=== PATIENT | male | born 1975 | race African-American/Black ===

== ENCOUNTER 2017-11-29 12:40 | Emergency (ER) | payer SELFPAY ==
[~2017-11-29] VITALS: Ht 185.4 cm; Wt 109.1 kg
[2017-11-29 12:43] VITALS: BP 140/100; PULSE 101; RESP 14; TEMP 97.7; O2SAT 99
--- NOTE | 2017-11-29 22:19 | PD ---
Physical Exam Date Seen by Provider: Nov 29, 2017 Time Seen by Provider: 14:53 Narrative 42-year-old male presents to the emergency department for evaluation of right thumb injury. He states that he injured his right thumb on rebar. He then put a hardboard panel printer to her to try to help his finger. Patient states finger is significantly swollen in triage. Patient rates pain 10/10. Data Data Last Documented VS Vital Signs Date Time Temp Pulse Resp B/P (MAP) Pulse Ox O2 Delivery O2 Flow Rate FiO2 11/29/17 12:43 97.7 101 14 140/100 (113) 99 Orders Orders Complete Blood Count With Diff (11/29/17 12:59) Basic Metabolic Panel (Bmp) (11/29/17 12:59) Act Partial Throm Time (Ptt) (11/29/17 12:59) Prothrombin Time / Inr (Pt) (11/29/17 12:59) MDM Supervised Visit with AGUSTIN: No Narrative Course 42-year-old male presents to the emergency department for evaluation of right thumb injury. It is significantly swollen and appears to be infected in triage. Patient is initially seen in triage and workup is initiated. Before patient could be placed in a medical bed, he left AGAINST MEDICAL ADVICE. Diagnosis Primary Impression: Left against medical advice Additional Impression: Finger injury Qualified Codes: S69.91XA - Unspecified injury of right wrist, hand and finger (s), initial encounter Disposition: 07 AGAINST MEDICAL ADVICE Jolene Lester Nov 29, 2017 22:19
== END 2017-11-29 14:53 | disposition left against medical advice (07) ==
LOC: NED 12:40
DX: S69.91XA Unspecified injury of right wrist, hand and finger(s), initial encounter (principal); Z53.21 Procedure and treatment not carried out due to patient leaving prior to being seen by health care provider
CPT/HCPCS: 99281

== ENCOUNTER 2017-12-04 00:18 | Inpatient (IN) | payer SELFPAY ==
[2017-12-04] VITALS (8 sets, daily range): BP systolic 123–161; BP diastolic 73–92; PULSE 78–111; RESP 18–26; TEMP 96.7–99.6; O2SAT 93–100
[~2017-12-04] VITALS: Ht 188 cm; Wt 101.0 kg
[2017-12-04] MEDS ORDERED: PIPERACIL-TAZO 4.5 GM PREMIX 100 ML IV STA (01:24)
[2017-12-04] MEDS ORDERED: VANCOMYCIN INJ 1,500 MG in SODIUM CHLORID 0.9% 500 ML INJ 500 ML IV STA (01:24)
[2017-12-04] MEDS ORDERED: SODIUM CHLOR 0.9% 1000 ML INJ 1,000 ML IV ONE ×3 (01:24)
[2017-12-04] MEDS ORDERED: MORPHINE SULFATE 8 MG/ML INJ IV PUSH ONE (01:30)
[2017-12-04] MEDS ORDERED: ONDANSETRON HCL 4 MG/2 ML VIAL IV PUSH ONE (01:30)
[2017-12-04] MEDS ORDERED: ACETAMINOPHEN 325 MG TAB PO ONE (01:30)
--- NOTE | 2017-12-04 01:48 | RADRPT ---
EXAM DATE/TIME: 12/04/2017 01:34 [place] COMPARISON: No previous studies available for comparison. INDICATIONS : Pain and swelling of right thumb after laceration from metal. MEDICAL HISTORY : None. SURGICAL HISTORY : None. ENCOUNTER: Initial ACUITY: 2 days PAIN SCORE: 10/10 LOCATION: Right Thumb FINDINGS: There is soft tissue swelling at the first digit. No metallic foreign body is seen. No fracture is se en. CONCLUSION: Soft tissue swelling. Wilder Bailey MD on December 04, 2017 at 1:44 Board Certified Radiologist. This report was verified electronically.
[2017-12-04 01:59] LABS: AUTOMATED NEUTROPHIL # 5.2 TH/MM3 (1.8-7.7); BASOPHIL % 0.4 % (0.0-2.0); EOSINOPHIL # 0.1 TH/MM3 (0-0.4); EOSINOPHIL % 0.8 % (0.0-4.0); HEMATOCRIT 37.8 % (39.0-51.0); HEMOGLOBIN 13.1 GM/DL (13.0-17.0); LYMPH % 21.2 % (9.0-44.0); LYMPHOCYTE # 1.6 TH/MM3 (1.0-4.8); MEAN CELL VOLUME 81.9 FL (80.0-100.0); MEAN CORPUSCULAR HEMOGLOBIN 28.3 PG (27.0-34.0); MEAN CORPUSCULAR HGB CONC 34.6 % (32.0-36.0); MEAN PLATELET VOLUME 6.9 FL (7.0-11.0); MONO % 8.7 % (0.0-8.0); MONOCYTE # 0.7 TH/MM3 (0-0.9); NEUT % 68.9 % (16.0-70.0); PLATELET COUNT 310 TH/MM3 (150-450); RED BLOOD COUNT 4.62 MIL/MM3 (4.50-5.90); RED CELL DISTRIBUTION WIDTH 13.7 % (11.6-17.2); WHITE BLOOD COUNT 7.5 TH/MM3 (4.0-11.0)
[2017-12-04 02:13] LABS: ALBUMIN 3.5 GM/DL (3.4-5.0); ALT (GPT) 34 U/L (12-78); AST (GOT) 52 U/L (15-37); BICARBONATE 27.5 MEQ/L (21.0-32.0); BLOOD UREA NITROGEN 9 MG/DL (7-18); CALCIUM 8.9 MG/DL (8.5-10.1); CHLORIDE 99 MEQ/L (98-107); CREATININE 1.25 MG/DL (0.60-1.30); GLOMERULAR FILTRATION RATE 77 ML/MIN (>89); GLUCOSE,RANDOM 97 MG/DL (74-106); SODIUM (NA) 132 MEQ/L (136-145)
[2017-12-04 02:15] LABS: ALKALINE PHOSPHATASE 109 U/L (45-117); TOTAL BILIRUBIN ADULT 0.4 MG/DL (0.2-1.0); TOTAL PROTEIN 9.1 GM/DL (6.4-8.2)
[2017-12-04] MEDS ORDERED: ONDANSETRON HCL 4 MG/2 ML VIAL IVP PRN (03:15)
[2017-12-04] MEDS ORDERED: SODIUM CHLORIDE 0.9% FLUSH 10 ML FLUSH IV FLUSH PRN (03:15)
[2017-12-04] MEDS ORDERED: MAGNESIUM HYDROXIDE SUSP 30 ML CUP PO PRN (03:15)
[2017-12-04] MEDS ORDERED: SENNOSIDES 8.6 MG TAB PO PRN (03:15)
[2017-12-04] MEDS ORDERED: LACTULOSE SYRUP 20 GM/30 ML CUP PO PRN (03:15)
[2017-12-04] MEDS ORDERED: Vancomycin Consult Pharmacy 1 EA OTHER SCH (03:15)
[2017-12-04] MEDS ORDERED: BISACODYL 10 MG SUPP RECTAL PRN (03:15)
[2017-12-04] MEDS ORDERED: ACETAMINOPHEN/HYDROcodone 325 MG/5 MG TAB PO PRN (03:15)
--- NOTE | 2017-12-04 03:18 | PD ---
HPI Chief Complaint: Injury Time Seen by Provider: 01:16 Travel History International Travel<30 days: No Contact w/Intl Traveler<30days: No Traveled to known affect area: No History of Present Illness HPI 42-year-old male arrives to the ER with pain and swelling in the right thumb. He does not answer questions thereby limiting the history. Significant other was much of it. 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 He's had swelling and pain in the right thumb leading to the evaluation today. [facility] Past Medical History Medical History: Denies Significant Hx Tetanus Vaccination: > 5 Years Influenza Vaccination: No Past Surgical History Surgical History: No Previous Surgery Social History Alcohol Use: Yes Tobacco Use: Yes Substance Use: Yes (mj) Allergies-Medications (Allergen,Severity, Reaction): Coded Allergies: No Known Drug Allergies (Verified Allergy, Unknown, 12/04/17) Reported Meds & Prescriptions Reported Meds & Active Scripts Active No Active Prescriptions or Reported Medications Review of Systems ROS Limitations: Uncooperative Physical Exam Narrative GENERAL: 42-year-old male well-nourished well-developed does not answer questions appears to be in moderate distress SKIN: Warm and dry. HEAD: Atraumatic. Normocephalic. EYES: Pupils equal and round. No scleral icterus. No injection or drainage. ENT: No nasal bleeding or discharge. Mucous membranes pink and moist. NECK: Trachea midline. No JVD. CARDIOVASCULAR: Regular rate and rhythm. RESPIRATORY: No accessory muscle use. Clear to auscultation. Breath sounds equal bilaterally. GASTROINTESTINAL: Abdomen soft, non-tender, nondistended. Hepatic and splenic margins not palpable. MUSCULOSKELETAL: There is circumferential thickening of the right thumb from the base to the tip as well as a circumferential facial laceration towards the base of the first metacarpal. passive flexion elicits some tenderness however exam somewhat limited due to patient affect NEUROLOGICAL: Pt not cooperative. PSYCHIATRIC: Unable to assess 2/2 pt cooperativity Data Data Last Documented VS Vital Signs Date Time Temp Pulse Resp B/P (MAP) Pulse Ox O2 Delivery O2 Flow Rate FiO2 12/04/17 01:49 108 26 143/73 (96) 100 Room Air 12/04/17 00:20 98.0 VS reviewed Orders Orders Finger ([id number]) (12/04/17 ) Sepsis Workup Initiated (12/04/17 ) Complete Blood Count With Diff (12/04/17 01:24) Comprehensive Metabolic Panel (12/04/17 01:24) Lactic Acid Sepsis Protocol (12/04/17 01:24) Urinalysis - C+S If Indicated (12/04/17 01:24) Blood Culture (12/04/17 01:24) Wound Culture And Gram Stain (12/04/17 01:24) Blood Glucose (12/04/17 01:24) Ecg Monitoring (12/04/17:24) Iv Access Insert/Monitor (12/04/17:24) Oximetry (12/04/17:24) Oxygen Administration (12/04/17:24) Acetaminophen (Tylenol) (12/04/17 01:30) Morphine Inj (Morphine Inj) (12/04/17 01:30) Ondansetron Inj (Zofran Inj) (12/04/17 01:30) Piperacil-Tazo 4.5 Gm Premix (Zosyn 4.5 (12/04/17 01:24) Vancomycin Inj (Vancomycin Inj) (12/04/17 01:24) Sodium Chlor 0.9% 1000 Ml Inj (Ns 1000 M (12/04/17 01:24) Sodium Chlor 0.9% 1000 Ml Inj (Ns 1000 M (12/04/17 01:24) Sodium Chlor 0.9% 1000 Ml Inj (Ns 1000 M (12/04/17 01:24) Labs Laboratory Tests Test 12/04/17 01:40 White Blood Count 7.5 TH/MM3 Red Blood Count 4.62 MIL/MM3 Hemoglobin 13.1 GM/DL Hematocrit 37.8 % Mean Corpuscular Volume 81.9 FL Mean Corpuscular Hemoglobin 28.3 PG Mean Corpuscular Hemoglobin Concent 34.6 % Red Cell Distribution Width 13.7 % Platelet Count 310 TH/MM3 Mean Platelet Volume 6.9 FL Neutrophils (%) (Auto) 68.9 % Lymphocytes (%) (Auto) 21.2 % Monocytes (%) (Auto) 8.7 % Eosinophils (%) (Auto) 0.8 % Basophils (%) (Auto) 0.4 % Neutrophils # (Auto) 5.2 TH/MM3 Lymphocytes # (Auto) 1.6 TH/MM3 Monocytes # (Auto) 0.7 TH/MM3 Eosinophils # (Auto) 0.1 TH/MM3 Basophils # (Auto) 0.0 TH/MM3 CBC Comment DIFF FINAL Differential Comment Blood Urea Nitrogen 9 MG/DL Creatinine 1.25 MG/DL Random Glucose 97 MG/DL Total Protein 9.1 GM/DL Albumin 3.5 GM/DL Calcium Level 8.9 MG/DL Alkaline Phosphatase 109 U/L Aspartate Amino Transf (AST/SGOT) 52 U/L Alanine Aminotransferase (ALT/SGPT) 34 U/L Total Bilirubin 0.4 MG/DL Sodium Level 132 MEQ/L Potassium Level 4.2 MEQ/L Chloride Level 99 MEQ/L Carbon Dioxide Level 27.5 MEQ/L Anion Gap 6 MEQ/L Estimat Glomerular Filtration Rate 77 ML/MIN Lactic Acid Level 0.4 mmol/L [facility] Medical Decision Making Medical Screen Exam Complete: Yes Emergency Medical Condition: Yes Medical Record Reviewed: Yes Differential Diagnosis cellulitis, flexor tenosynovitis, abscess, sepsis Narrative Course Patient has infection of the right thumb. He'll be admitted for IV antibiotics for hand surgery evaluation. Case discussed with Dr. العراقي for [facility]. Possible flexor tenosynovitis. Diagnosis Primary Impression: Tenosynovitis of thumb Admitting Information Admitting Physician Requests: Admit Scripts No Active Prescriptions or Reported Meds Davey Cantor MD Dec 04, 2017 03:18
--- NOTE | 2017-12-04 03:58 | HHI.HP ---
HPI Service [facility] Primary Care Physician No Primary Care Physician Admission Diagnosis RIGHT THUMB CELLULITIS Diagnoses: (1) Sepsis Diagnosis: Principal (2) Infection of thumb Diagnosis: Principal (3) Tobacco abuse Diagnosis: Principal Travel History International Travel<30 Days: No Contact w/Intl Traveler <30 Da: No Traveled to Known Affected Are: No History of Present Illness This is a 42-year-old male with no reported PMH presented to the ER with complaints of right thumb pain and swelling x2 wks. History significantly limited as pt will not cooperate w/ exam or speak during interview. History obtained from chart, ER doc and [employer]. Pt's significant other previously at bedside assisting w/ some of the history, however not available at this time. Per reports, pt seen on 11/29/17 after he injured his right thumb on rebar and apparently put a farm equipment mechanic to it. Was seen in Triage at that time, however pt LEFT AMA. Returns now w/ ongoing complaints, in addition to report of fever at home of 102.0. On arrival, BP 161/89, HR 111, O2 sat 97% on RA, Afebrile. CBC essentially unremarkable. Chemistry essentially unremarkable. Lactic Acid normal. Finger X-ray was soft tissue swelling, no foreign body seen. S/p Vanc/ Zosyn in ER. Review of Systems Except as stated in HPI: all other systems reviewed are Neg ROS: Unknown as patient will not cooperate with exam or answer questions. Past Family Social History Past Medical History PMH: None Past Surgical History PAST SURGICAL HISTORY: None Allergies: Coded Allergies: No Known Drug Allergies (Verified Allergy, Unknown, 12/04/17) Family History PAST FAMILY HISTORY: Reviewed. No h/o DM or CAD Social History PAST SOCIAL HISTORY: Positive for alcohol, tobacco and Marijuana. Physical Exam Vital Signs Vital Signs Date Time Temp Pulse Resp B/P (MAP) Pulse Ox O2 Delivery O2 Flow Rate FiO2 12/04/17 03:00 90 20 142/85 (104) 100 Room Air 12/04/17 01:49 108 26 143/73 (96) 100 Room Air 12/04/17 00:20 98.0 111 20 161/89 (113) 97 Room Air Physical Exam PE: GENERAL: Middle-aged black male in no acute distress, pretending to sleep. Uncooperative w/ exam, will not answer questions. HEENT: PERRLA, EOMI. No scleral icterus or conjunctival pallor. No lid lag or facial droop. CARDIOVASCULAR: Regular rate and rhythm. No obvious murmurs to auscultation. No chest tenderness to palpation. RESPIRATORY: No obvious rhonchi or wheezing. Clear to auscultation. Breath sounds equal bilaterally. GASTROINTESTINAL: Abdomen soft, non-tender, nondistended. BS normal. MUSCULOSKELETAL: Extremities without clubbing, cyanosis, or edema. No obvious deformities. Right thumb w/ swelling, +laceration at base of thumb. NEUROLOGICAL: Eyes closed, uncooperative. No focal neurologic deficits. Moving both upper and lower extremities spontaneously. Laboratory Laboratory Tests Test 12/04/17 01:40 White Blood Count 7.5 Red Blood Count 4.62 Hemoglobin 13.1 Hematocrit 37.8 Mean Corpuscular Volume 81.9 Mean Corpuscular Hemoglobin 28.3 Mean Corpuscular Hemoglobin Concent 34.6 Red Cell Distribution Width 13.7 Platelet Count 310 Mean Platelet Volume 6.9 Neutrophils (%) (Auto) 68.9 Lymphocytes (%) (Auto) 21.2 Monocytes (%) (Auto) 8.7 Eosinophils (%) (Auto) 0.8 Basophils (%) (Auto) 0.4 Neutrophils # (Auto) 5.2 Lymphocytes # (Auto) 1.6 Monocytes # (Auto) 0.7 Eosinophils # (Auto) 0.1 Basophils # (Auto) 0.0 CBC Comment DIFF FINAL Differential Comment Blood Urea Nitrogen 9 Creatinine 1.25 Random Glucose 97 Total Protein 9.1 Albumin 3.5 Calcium Level 8.9 Alkaline Phosphatase 109 Aspartate Amino Transf (AST/SGOT) 52 Alanine Aminotransferase (ALT/SGPT) 34 Total Bilirubin 0.4 Sodium Level 132 Potassium Level 4.2 Chloride Level 99 Carbon Dioxide Level 27.5 Anion Gap 6 Estimat Glomerular Filtration Rate 77 Lactic Acid Level 0.4 Date/Time Source Procedure Growth Status 12/04/17 01:40 Blood Peripheral Aerobic Blood Culture Pending Received 12/04/17 01:40 Blood Peripheral Anaerobic Blood Culture Pending Received 12/04/17 01:40 Wound Finger Gram Stain Pending Received 12/04/17 01:40 Wound Finger Wound Culture Pending Received Result Diagram: 12/04/1713912/04/17 014 Caprini VTE Risk Assessment Caprini VTE Risk Assessment: No/Low Risk (score <= 1) Caprini Risk Assessment Model Point Value = 1 Point Value = 2 Point Value = 3 Point Value = 5 Age 41-60 Minor surgery BMI > 25 kg/m2 Swollen legs Varicose veins or History of unexplained or recurrent spontaneous Oral contraceptives or hormone replacement Sepsis (< 1 month) Serious lung disease, including pneumonia (< 1 month) Abnormal pulmonary function Acute myocardial infarction Congestive heart failure (< 1 month) History of inflammatory bowel disease Medical patient at bed rest Age 61-74 Arthroscopic surgery Major open surgery (> 45 min) Laparoscopic surgery (> 45 min) Malignancy Confined to bed (> 72 hours) Immobilizing plaster cast Central venous access Age >= 75 History of VTE Family history of VTE Factor V Leiden Prothrombin [id number] Lupus anticoagulant Anticardiolipin antibodies Elevated serum homocysteine Heparin-induced thrombocytopenia Other congenital or acquired thrombophilia Stroke (< 1 month) Elective arthroplasty Hip, pelvis, or leg fracture Acute spinal cord injury (< 1 month) Prophylaxis Regimen Total Risk Factor Score Risk Level Prophylaxis Regimen 0-1 Low Early ambulation 2 Moderate Order ONE of the following: *Sequential Compression Device (SCD) *Heparin 5000 units SQ BID 3-4 Higher Order ONE of the following medications: *Heparin 5000 units SQ TID *Enoxaparin/Lovenox 40 mg SQ daily (WT < 150 kg, CrCl > 30 mL/min) *Enoxaparin/Lovenox 30 mg SQ daily (WT < 150 kg, CrCl > 10-29 mL/min) *Enoxaparin/Lovenox 30 mg SQ BID (WT < 150 kg, CrCl > 30 mL/min) AND/OR *Sequential Compression Device (SCD) 5 or more Highest Order ONE of the following medications: *Heparin 5000 units SQ TID (Preferred with Epidurals) *Enoxaparin/Lovenox 40 mg SQ daily (WT < 150 kg, CrCl > 30 mL/min) *Enoxaparin/Lovenox 30 mg SQ daily (WT < 150 kg, CrCl > 10-29 mL/min) *Enoxaparin/Lovenox 30 mg SQ BID (WT < 150 kg, CrCl > 30 mL/min) AND *Sequential Compression Device (SCD) Assessment and Plan Problem List: (1) Sepsis ICD Code: A41.9 - Sepsis, unspecified organism (2) Infection of thumb ICD Code: L08.9 - Local infection of the skin and subcutaneous tissue, unspecified (3) Tobacco abuse ICD Code: Z72.0 - Tobacco use Assessment and Plan A/P: 1. Sepsis: Temp 102 at home, HR 111, Source-Right Thumb Infection. S/p Blood Cultures, Vanc/Zosyn in ER, continue w/ IV Abx, follow up cultures. 2. Right Thumb Infection: History limited as pt uncooperative w/ exam, not answering questions, apparently sustained injury 2wks ago w/ piece of rebar, now w/ progressive swelling and fever. Hand X-ray w/ soft tissue swelling, no foreign body noted, images reviewed by me. Continue w/ IV Abx as above, follow up cultures. Analgesics/antiemetics as needed. Consult Hand Sx for further evaluation/possible intervention. 3. Tobacco Abuse: NicoDerm prn if needed. 4. DVT Prophylaxis: SCD/Teds. 5. Social work for d/c planning as needed. 6. Case discussed w/ ER physician at length, labs/records/imaging reviewed by me Physician Certification 2 Midnight Certification Type: Admission for Inpatient Services Order for Inpatient Services The services are ordered in accordance with Medicare regulations or non- Medicare payer requirements, as applicable. In the case of services not specified as inpatient-only, they are appropriately provided as inpatient services in accordance with the 2-midnight benchmark. Estimated LOS (days): 2 days is the estimated time the patient will need to remain in the hospital, assuming treatment plan goals are met and no additional complications. Post-Hospital Plan: Not yet determined Anitha العراقي MD Dec 04, 2017 03:58
[2017-12-04] MEDS: SODIUM CHLOR 0.9% 1000 ML INJ 1,000 ML IV SCH ×3 (04:14→19:23)
[2017-12-04 04:16] LABS: BILIRUBIN, URINE NEG (NEG); BLOOD, URINE NEG (NEG); GLUCOSE,URINE NEG (NEG); KETONE, URINE NEG (NEG); NITRITE,URINE NEG (NEG); SQUAMOUS EPITHELIAL CELL URINE <1 /hpf (0-5); URINE COLOR LIGHT-YELLOW (YELLW/STRAW); URINE LEUKOCYTE ESTERASE NEG (NEG)
[2017-12-04] MEDS: DOCUSATE SODIUM 50 MG/SENNA 8.6 MG TAB PO SCH ×2 (09:00→21:00)
[2017-12-04] MEDS: SODIUM CHLORIDE 0.9% FLUSH 10 ML FLUSH IV FLUSH SCH ×2 (09:00→19:10)
[2017-12-04] MEDS ORDERED: ROCURONIUM INJ 50 MG/5 ML SYRINGE IV PUSH ONE (12:00)
[2017-12-04] MEDS: CEFEPIME INJ 1,000 MG in SODIUM CHLORIDE 0.9% INJ 100 ML IV SCH (12:00)
[2017-12-04] MEDS ORDERED: ceFAZolin INJ 1,000 MG VIAL IV ONE ×2 (12:00→16:48)
[2017-12-04] MEDS ORDERED: ePHEDrine/NS 25 MG/5 ML SYRINGE IV ONE (12:00)
[2017-12-04] MEDS ORDERED: LIDOCAINE HCL 1% PF 5 ML SYRINGE OTHER ONE (12:00)
[2017-12-04] MEDS ORDERED: PHENYLEPHRINE HCL 10 MG/ML VIAL IV ONE (12:00)
[2017-12-04] MEDS ORDERED: PROPOFOL 200 MG/20 ML AMP IV ONE (12:00)
[2017-12-04] MEDS ORDERED: ONDANSETRON HCL 4 MG/2 ML VIAL IV ONE (12:00)
[2017-12-04] MEDS ORDERED: SUCCINYLCHOLINE CHLORIDE 200 MG/10 ML VIAL IV ONE (12:00)
[2017-12-04] MEDS ORDERED: PHENYLEPH/NS 1000 MCG/10 ML SYR IV ONE (12:00)
--- NOTE | 2017-12-04 13:15 | HHI.PR ---
Addendum to Inpatient Note Addendum Reason: Additional Documentation Additional Information Patient complains of right hand pain. Patient is afebrile, denies nausea vomiting or abdominal pain. The patient is awake alert oriented 3, nonacute distress. Lungs are clear to auscultation bilaterally. Abdomen is soft, nontender nondistended. Right thumb has swelling, laceration at the base of the thumb. Patient with sepsis on presentation, right thumb infection with cellulitis and possibly an abscess. Continue broad-spectrum antibiotic coverage with IV vancomycin and IV Zosyn for now, will cultures pending as well as blood cultures. Had surgery consulted and recommendations pending. The patient likely will need an I&D. Joshua Lizarraga MD Dec 04, 2017 13:15
[2017-12-04] MEDS: VANCOMYCIN INJ 1,750 MG in SODIUM CHLORID 0.9% 500 ML INJ 500 ML IV SCH (14:00)
[2017-12-04] MEDS: MORPHINE SULFATE 2 MG/ML INJ IV PUSH PRN ×2 (15:06→21:28)
[2017-12-04] MEDS ORDERED: ACETAMINOPHEN 1000 MG/100 ML 100 ML IV ONE (15:19)
[2017-12-04] MEDS ORDERED: GENTAMICIN SULFATE 80 MG/2 ML VIAL ONE (16:36)
[2017-12-04] MEDS ORDERED: LIDOCAINE 2%/EPINEPHrine PF 1:200,000 20ML SDV ONE (16:42)
[2017-12-04] MEDS ORDERED: LACTATED RINGER'S 1000 ML INJ 1,000 ML ONE (18:41)
[2017-12-04] MEDS ORDERED: DO NOT ADM ANY ANTICOAGULANT DRUGS PRN (18:45)
[2017-12-04] MEDS ORDERED: LACTATED RINGER'S 1000 ML INJ 1,000 ML IV ONE (18:45)
[2017-12-05] VITALS (9 sets, daily range): BP systolic 124–142; BP diastolic 67–83; PULSE 81–107; RESP 18–20; TEMP 97.7–100.9; O2SAT 95–99
[2017-12-05] MEDS: MORPHINE SULFATE 2 MG/ML INJ IV PUSH PRN ×3 (00:34→20:45)
[2017-12-05] MEDS: CEFEPIME INJ 1,000 MG in SODIUM CHLORIDE 0.9% INJ 100 ML IV SCH ×2 (00:35→12:46)
[2017-12-05] MEDS: VANCOMYCIN INJ 1,750 MG in SODIUM CHLORID 0.9% 500 ML INJ 500 ML IV SCH ×2 (03:23→14:49)
[2017-12-05] MEDS: ACETAMINOPHEN 325 MG TAB PO PRN (06:27)
[2017-12-05 07:36] LABS: AUTOMATED NEUTROPHIL # 3.4 TH/MM3 (1.8-7.7); BASOPHIL % 0.3 % (0.0-2.0); EOSINOPHIL # 0.1 TH/MM3 (0-0.4); EOSINOPHIL % 1.6 % (0.0-4.0); HEMATOCRIT 34.7 % (39.0-51.0); HEMOGLOBIN 11.8 GM/DL (13.0-17.0); LYMPH % 24.1 % (9.0-44.0); LYMPHOCYTE # 1.2 TH/MM3 (1.0-4.8); MEAN CELL VOLUME 82.3 FL (80.0-100.0); MEAN CORPUSCULAR HEMOGLOBIN 28.1 PG (27.0-34.0); MEAN CORPUSCULAR HGB CONC 34.1 % (32.0-36.0); MEAN PLATELET VOLUME 7.1 FL (7.0-11.0); MONO % 8.6 % (0.0-8.0); MONOCYTE # 0.4 TH/MM3 (0-0.9); NEUT % 65.4 % (16.0-70.0); PLATELET COUNT 265 TH/MM3 (150-450); RED BLOOD COUNT 4.21 MIL/MM3 (4.50-5.90); RED CELL DISTRIBUTION WIDTH 13.6 % (11.6-17.2); WHITE BLOOD COUNT 5.1 TH/MM3 (4.0-11.0)
[2017-12-05 08:04] LABS: ALBUMIN 2.7 GM/DL (3.4-5.0); ALKALINE PHOSPHATASE 85 U/L (45-117); ALT (GPT) 23 U/L (12-78); AST (GOT) 30 U/L (15-37); BICARBONATE 27.5 MEQ/L (21.0-32.0); BLOOD UREA NITROGEN 9 MG/DL (7-18); CALCIUM 8.4 MG/DL (8.5-10.1); CHLORIDE 102 MEQ/L (98-107); CREATININE 1.22 MG/DL (0.60-1.30); GLOMERULAR FILTRATION RATE 79 ML/MIN (>89); GLUCOSE,RANDOM 82 MG/DL (74-106); SODIUM (NA) 135 MEQ/L (136-145); TOTAL BILIRUBIN ADULT 0.3 MG/DL (0.2-1.0); TOTAL PROTEIN 7.7 GM/DL (6.4-8.2)
[2017-12-05] MEDS: SODIUM CHLORIDE 0.9% FLUSH 10 ML FLUSH IV FLUSH SCH ×2 (09:00→20:46)
[2017-12-05] MEDS: DOCUSATE SODIUM 50 MG/SENNA 8.6 MG TAB PO SCH ×2 (09:20→20:47)
[2017-12-05] MEDS: SODIUM CHLOR 0.9% 1000 ML INJ 1,000 ML IV SCH ×2 (09:34→20:45)
[2017-12-05] MEDS ORDERED: PHARMACY ORDERED LAB ONE (13:45)
--- NOTE | 2017-12-05 15:45 | PD.CONS ---
History of Present Illness Service Hand surgery Consult Requested By Primary team Reason for Consult Right thumb infection Primary Care Physician No Primary Care Physician Diagnoses: History of Present Illness 42-year-old left hand dominant male with no reported PMH presented to the ER with complaints of right thumb pain and swelling x3 wks. History significantly limited as pt very poor historian. Pt injured his right thumb on rebar and then burned his thumb in order to 'clean it'. Finger X-ray was soft tissue swelling, no foreign body seen. S/p Vanc/Zosyn in ER. Patient reports severe pain to his thumb. He denies pain proximal to the thumb MCP. Patient reports he has sensation to the distal thumb tip though it is diminished. Patient denies complaints elsewhere. PMH: None PAST SURGICAL HISTORY: None Allergies: Coded Allergies: No Known Drug Allergies (Verified Allergy, Unknown, 12/04/17) Family History PAST FAMILY HISTORY: Reviewed. No h/o DM or CAD Social History PAST SOCIAL HISTORY: Positive for alcohol, tobacco and Marijuana, and cocaine previous night Review of Systems Review of systems otherwise noncontributory to presenting complaint Past Family Social History Allergies: Coded Allergies: No Known Drug Allergies (Verified Allergy, Unknown, 12/04/17) Past Medical History see HPI Physical Exam Vital Signs Vital Signs Date Time Temp Pulse Resp B/P (MAP) Pulse Ox O2 Delivery O2 Flow Rate FiO2 12/05/17 13:35 98 12/05/17 12:00 98.9 84 20 136/74 (94) 98 12/05/17 09:00 81 12/05/17 08:00 98.6 86 20 124/75 (91) 95 12/05/17 04:00 100.9 104 20 142/83 (102) 95 12/05/17 01:18 21 12/05/17 00:00 100.0 107 18 140/82 (101) 96 12/04/17 20:00 98.2 78 20 123/82 (96) 94 12/04/17 19:45 88 20 110/71 (84) 100 Room Air 12/04/17 19:30 98.5 87 16 102/56 (71) 100 Room Air 12/04/17 19:15 88 20 111/59 (76) 99 Nasal Cannula 2 12/04/17 19:00 92 12 101/51 (68) 100 Nasal Cannula 3 12/04/17 18:50 94 16 92/54 (67) 97 Nasal Cannula 2 12/04/17 18:45 93 18 97/54 (68) 97 Nasal Cannula 2 12/04/17 18:40 91 16 94/50 (65) 97 Nasal Cannula 2 12/04/17 18:35 96 16 92/50 (64) 95 Nasal Cannula 2 12/04/17 18:33 96 14 101/54 (70) 96 Nasal Cannula 2 12/04/17 18:30 96 16 74/44 (54) 96 Nasal Cannula 2 12/04/17 18:26 98.0 98 16 85/47 (60) 95 Nasal Cannula 2 12/04/17 16:00 98.5 91 22 143/81 (101) 96 Patient appears uncomfortable Patient sleeping soundly, though was able to be aroused with loud voice Patient with very strange affect After asking questions repeatedly with loud voice, patient finally able to answer appropriately Patient does not seem acutely inebriated, though he is very somnolent Moist mucous membranes PERRLA skin without rash respirations nonlabored No focal neurologic deficits Patient's right thumb with fusiform dilatation, roughly 2-3 times larger than the patient's unaffected left thumb Sensation intact to light touch distal thumb Due to dirt and or poor tissue perfusion, difficult to establish if erythema present on the thumb were not Diffuse epidermolysis over the patient's thumb The patient with limited range of motion of his thumb Minimal tenderness to firm palpation over the thenar eminence and forearm as well as the rest of the hand Thumb very tender to light palpation Patient with what appears to be 2 stab wounds, one to the thumb tip pulp and 1 over the mid volar P1 Neither draining Thumb tip appears entirely fluctuant no cap refill to nail bed Laboratory Laboratory Tests Test 12/05/17 06:26 12/05/17 14:45 White Blood Count 5.1 Red Blood Count 4.21 Hemoglobin 11.8 Hematocrit 34.7 Mean Corpuscular Volume 82.3 Mean Corpuscular Hemoglobin 28.1 Mean Corpuscular Hemoglobin Concent 34.1 Red Cell Distribution Width 13.6 Platelet Count 265 Mean Platelet Volume 7.1 Neutrophils (%) (Auto) 65.4 Lymphocytes (%) (Auto) 24.1 Monocytes (%) (Auto) 8.6 Eosinophils (%) (Auto) 1.6 Basophils (%) (Auto) 0.3 Neutrophils # (Auto) 3.4 Lymphocytes # (Auto) 1.2 Monocytes # (Auto) 0.4 Eosinophils # (Auto) 0.1 Basophils # (Auto) 0.0 CBC Comment DIFF FINAL Differential Comment Blood Urea Nitrogen 9 Creatinine 1.22 Random Glucose 82 Total Protein 7.7 Albumin 2.7 Calcium Level 8.4 Alkaline Phosphatase 85 Aspartate Amino Transf (AST/SGOT) 30 Alanine Aminotransferase (ALT/SGPT) 23 Total Bilirubin 0.3 Sodium Level 135 Potassium Level 4.1 Chloride Level 102 Carbon Dioxide Level 27.5 Anion Gap 6 Estimat Glomerular Filtration Rate 79 Date/Time Source Procedure Growth Status 12/04/17 01:40 Blood Peripheral Aerobic Blood Culture - Preliminary S. Aureus Mrsa Resulted 12/04/17 01:40 Anaerobic Blood Culture - Preliminary Gram Positive Cocci Resulted 12/04/17 17:14 Wound Finger Fungal Smear - Final NO FUNGAL ELEMENTS SEEN. Resulted 12/04/17 17:14 Wound Finger Fungal Culture Pending Resulted Result Diagram: 12/05/1726 12/05/17625 Assessment and Plan Problem List: (1) Tenosynovitis of thumb ICD Codes: M65.9 - Synovitis and tenosynovitis, unspecified Status: Acute (2) Infection of thumb ICD Codes: L08.9 - Local infection of the skin and subcutaneous tissue, unspecified (3) Sepsis ICD Codes: A41.9 - Sepsis, unspecified organism Assessment and Plan 42-year-old male with severe right thumb infection Discussed at length with patient the risks benefits and alternative treatments Discussed with patient the possibility that he may lose his thumb Stress the importance of emergent washout and evacuation of any pus Given the lack of tenderness over the thenar eminence, do not feel this has progressed to tj tenosynovitis, though at a minimum this is a severe abscess of the thumb which appears to be compromising perfusion Stress to patient the risks of further procedures being necessary, nerve injury , deformity, dysfunction, stiffness, prolonged open wounds, and thumb amputation whether he undergoes operative treatment or not All questions answered The patient therefore elects to assume the risks of incision and drainage of right thumb abscess as well as washout of his tendon sheath should this be felt necessary intraoperatively Informed consent obtained Mani Martinez MD Dec 05, 2017 15:45
--- NOTE | 2017-12-05 16:01 | PD.OP ---
Operative Report Date of Surgery: Dec 04, 2017 Preoperative Diagnosis: (1) Tenosynovitis of thumb (2) Infection of thumb (3) Sepsis Postoperative Diagnosis: (1) Tenosynovitis of thumb (2) Sepsis (3) Infection of thumb Procedure: Incision and drainage of complicated thumb abscess (felon) 97061 Drainage and washout of tendon sheath of thumb [id number] Anesthesia: Gen. Surgeon: Mani Becerril Pin Machine Operator(s): . Operation and Findings: This is a 42-year-old male who presented to the emergency department roughly 3 weeks after injuring his right thumb. Hand surgery was consulted. The patient exhibited signs and symptoms consistent with a severe right thumb infection. A lengthy discussion was had with the patient regarding risks benefits and alternative treatments. The patient therefore elected to assume the risks of operative washout of the above infection. Informed consent was therefore obtained. Surgical site was marked before going to the operating room. The patient was taken to the operating room. All pressure points were padded. After the smooth induction of general anesthesia, a timeout was performed. After appropriate padding, an upper extremity tourniquet was placed. A digital block was instilled using 1% lidocaine with epinephrine. The surgical site was prepped and draped in the usual sterile fashion. After holding the arm in a nondependent position with pressure over the brachial artery for several minutes , the tourniquet was inflated. The epidermolysis was debrided. The previous stab wound in the thumb pulp was re-created and explored bluntly using the tenotomy's. A great deal of purulence was encountered. Cultures were sent 3 for anaerobic and aerobic fungal and AFB. The abscess cavity tracked to the volar aspect of the distal phalanx of the thumb. [place] incisions were then made in the proximal direction to allow for location of the patient's flexor tendon sheath. Attention was then turned to the proximal aspect of the thumb. The thenar eminence appeared uninvolved. An incision was made over the A1 claudio. Blunt dissection was carried down to the flexor tendon sheath. Both neurovascular bundles were visualized and kept free from injury. The A1 claudio was released. A pediatric feeding tube was then placed in the flexor tendon sheath, gently pushed distally, and received through the thumb pulp stab incision. This was then used to instill 3 L of gentamicin irrigation. This was done until the effluent ran clear. The feeding tube was removed. The tourniquet was let down. The tourniquet time was roughly 35 minutes. Hemostasis was ensured. The wounds were closed loosely with interrupted 4-0 nylons. The wound was dressed with Betadine soaked Kerlix wrapped circumferentially around the wound in a non-constricting manner. This was then dressed with ABDs and a Kerlix roll. All needle sponge and Spring counts were correct 2. The patient was awoken from anesthesia and arrive stable and doing well to the PACU. Mani Becerril MD Dec 05, 2017 16:01
[2017-12-05] MEDS: BACITRACIN TOP OINT 15 GM TUBE TOPICAL SCH ×2 (16:53→20:45)
--- NOTE | 2017-12-05 16:53 | HHI.PR ---
Subjective Remarks Pt s/p betadine soaks x 2 overnight by nursing. Patient reports pain improved. Range of motion improved Objective Vital Signs Date Time Temp Pulse Resp B/P (MAP) Pulse Ox O2 Delivery O2 Flow Rate FiO2 12/05/17 13:35 98 12/05/17 12:00 98.9 84 20 136/74 (94) 98 12/05/17 09:00 81 12/05/17 08:00 98.6 86 20 124/75 (91) 95 12/05/17 04:00 100.9 104 20 142/83 (102) 95 12/05/17 01:18 21 12/05/17 00:00 100.0 107 18 140/82 (101) 96 12/04/17 20:00 98.2 78 20 123/82 (96) 94 12/04/17 19:45 88 20 110/71 (84) 100 Room Air 12/04/17 19:30 98.5 87 16 102/56 (71) 100 Room Air 12/04/17 19:15 88 20 111/59 (76) 99 Nasal Cannula 2 12/04/17 19:00 92 12 101/51 (68) 100 Nasal Cannula 3 12/04/17 18:50 94 16 92/54 (67) 97 Nasal Cannula 2 12/04/17 18:45 93 18 97/54 (68) 97 Nasal Cannula 2 12/04/17 18:40 91 16 94/50 (65) 97 Nasal Cannula 2 12/04/17 18:35 96 16 92/50 (64) 95 Nasal Cannula 2 12/04/17 18:33 96 14 101/54 (70) 96 Nasal Cannula 2 12/04/17 18:30 96 16 74/44 (54) 96 Nasal Cannula 2 12/04/17 18:26 98.0 98 16 85/47 (60) 95 Nasal Cannula 2 I/O 12/04/17 12/04/17 12/04/17 12/05/17 12/05/17 12/05/17 07:00 15:00 23:00 07:00 15:00 23:00 Intake Total 3220 ml 5075 ml 820 ml Output Total 650 ml 3170 ml 2000 ml Balance 2570 ml 1905 ml -1180 ml Intake Oral 120 ml 1900 ml 720 ml IV Total 3100 ml 1375 ml 100 ml Other 1800 ml Output Urine Total 650 ml 3150 ml 2000 ml Estimated Blood Loss 20 ml # Voids 1 # Bowel Movements 1 Dressing removed Epidermolysis stable Edema mildly improved Much less tender No tenderness to firm palpation over the thenar eminence, rest of hand, or forearm Sensation intact to light touch distal thumb Result Diagram: 12/05/1762512/05/17625 Assessment and Plan Problem List: (1) Tenosynovitis of thumb ICD Codes: M65.9 - Synovitis and tenosynovitis, unspecified Status: Acute (2) Infection of thumb ICD Codes: L08.9 - Local infection of the skin and subcutaneous tissue, unspecified (3) Sepsis ICD Codes: A41.9 - Sepsis, unspecified organism Assessment and Plan 42-year-old male with severe right thumb infection Continue antibiotics Change dressings to warm soapy water soaks for 15 minutes 3 times a day by nursing, followed by application of copious bacitracin, then Xeroform, then dry gauze Keep hand elevated Mani Martinez MD Dec 05, 2017 16:53
--- NOTE | 2017-12-05 17:47 | HHI.PR ---
Subjective Remarks Patient states pain and range of motion improved. Denies fevers or chills. pain controlled. Objective Vitals Vital Signs Date Time Temp Pulse Resp B/P (MAP) Pulse Ox O2 Delivery O2 Flow Rate FiO2 12/05/17 16:00 98.6 84 20 138/74 (95) 99 12/05/17 13:35 98 12/05/17 12:00 98.9 84 20 136/74 (94) 98 12/05/17 09:00 81 12/05/17 08:00 98.6 86 20 124/75 (91) 95 12/05/17 04:00 100.9 104 20 142/83 (102) 95 12/05/17 01:18 21 12/05/17 00:00 100.0 107 18 140/82 (101) 96 12/04/17 20:00 98.2 78 20 123/82 (96) 94 12/04/17 19:45 88 20 110/71 (84) 100 Room Air 12/04/17 19:30 98.5 87 16 102/56 (71) 100 Room Air 12/04/17 19:15 88 20 111/59 (76) 99 Nasal Cannula 2 12/04/17 19:00 92 12 101/51 (68) 100 Nasal Cannula 3 12/04/17 18:50 94 16 92/54 (67) 97 Nasal Cannula 2 12/04/17 18:45 93 18 97/54 (68) 97 Nasal Cannula 2 12/04/17 18:40 91 16 94/50 (65) 97 Nasal Cannula 2 12/04/17 18:35 96 16 92/50 (64) 95 Nasal Cannula 2 12/04/17 18:33 96 14 101/54 (70) 96 Nasal Cannula 2 12/04/17 18:30 96 16 74/44 (54) 96 Nasal Cannula 2 12/04/17 18:26 98.0 98 16 85/47 (60) 95 Nasal Cannula 2 I/O 12/04/17 12/04/17 12/04/17 12/05/17 12/05/17 12/05/17 07:00 15:00 23:00 07:00 15:00 23:00 Intake Total 3220 ml 5075 ml 820 ml 100 ml 1100.5 ml Output Total 650 ml 3170 ml 2000 ml Balance 2570 ml 1905 ml -1180 ml 100 ml 1100.5 ml Intake Oral 120 ml 1900 ml 720 ml IV Total 3100 ml 1375 ml 100 ml 100 ml 1100.5 ml Other 1800 ml Output Urine Total 650 ml 3150 ml 2000 ml Estimated Blood Loss 20 ml # Voids 1 # Bowel Movements 1 Result Diagram: 12/05/17 0626 12/05/17 0626 Imaging Last Impressions Finger X-Ray 12/04/17 0000 Signed Impressions: Service Date/Time: Monday, December 04, 2017 01:34 - CONCLUSION: Soft tissue swelling. Wilder Bailey MD Objective Remarks GENERAL: Middle-aged black male in no acute distress, pretending to sleep. Uncooperative w/ exam, will not answer questions. HEENT: PERRLA, EOMI. No scleral icterus or conjunctival pallor. No lid lag or facial droop. CARDIOVASCULAR: Regular rate and rhythm. No obvious murmurs to auscultation. No chest tenderness to palpation. RESPIRATORY: No obvious rhonchi or wheezing. Clear to auscultation. Breath sounds equal bilaterally. GASTROINTESTINAL: Abdomen soft, non-tender, nondistended. BS normal. MUSCULOSKELETAL: Extremities without clubbing, cyanosis, or edema. No obvious deformities. Right thumb w/ swelling, +laceration at base of thumb. NEUROLOGICAL: Eyes closed, uncooperative. No focal neurologic deficits. Moving both upper and lower extremities spontaneously. Procedures Incision and drainage of complicated thumb abscess (felon) Drainage and washout of tendon sheath of thumb Medications and IVs Current Medications Medications (Trade) Dose Ordered Sig/Teresa Route Start Time Stop Time Status Last Admin Pharmacy Profile Note 0 ml @ 0 mls/hr UNSCH OTHER 12/04/17 03:15 Cefepime HCl 1000 mg/Sodium Chloride 100 ml @ 200 mls/hr Q12H IV 12/04/17 12:00 12/05/17 12:46 Sodium Chloride 1,000 ml @ 100 mls/hr Q10H IV 12/04/17 03:11 12/05/17 09:34 (NS Flush) 2 ml UNSCH PRN IV FLUSH 12/04/17 03:15 (NS Flush) 2 ml BID IV FLUSH 12/04/17 09:00 12/04/17 19:10 (Zofran Inj) 4 mg Q6H PRN IVP 12/04/17 03:15 (Tylenol) 650 mg Q6H PRN PO 12/04/17 03:15 12/05/17 06:27 ([place] 5-325 Mg) 1 tab Q4H PRN PO 12/04/17 03:15 (Morphine Inj) 2 mg Q3H PRN IV PUSH 12/04/17 03:15 12/05/17 06:27 (Jessie-Colace) 1 tab BID PO 12/04/17 09:00 12/05/17 09:20 (Milk Of Magnesia Liq) 30 ml Q12H PRN PO 12/04/17 03:15 (Senokot) 17.2 mg Q12H PRN PO 12/04/17 03:15 (Dulcolax Supp) 10 mg DAILY PRN RECTAL 12/04/17 03:15 (Lactulose Liq) 30 ml DAILY PRN PO 12/04/17 03:15 Vancomycin HCl 1750 mg/Sodium Chloride 517.5 ml @ 257.5 mls/ hr Q12H IV 12/04/17 14:00 12/05/17 14:49 Miscellaneous Information ALL NURSING DEPARTME... UNSCH PRN .XX 12/04/17 18:45 12/05/17 18:44 (Baciguent Oint) 1 applic Q8HR TOPICAL 12/05/17 14:00 12/05/17 16:53 A/P Problem List: (1) Sepsis ICD Code: A41.9 - Sepsis, unspecified organism (2) Infection of thumb ICD Code: L08.9 - Local infection of the skin and subcutaneous tissue, unspecified (3) Tobacco abuse ICD Code: Z72.0 - Tobacco use Assessment and Plan 1. Sepsis: Temp 102 at home, HR 111, Source-Right Thumb Infection. S/p Blood Cultures, Vanc/Zosyn in ER, continue w/ IV Abx, follow up cultures. 12/05 sepsis clinically improving. Patient without any further fevers and tachycardia resolved. Continue IV vancomycin and IV Zosyn. Blood cultures are growing MRSA as well as wound cultures. We'll place on contact precautions. Repeat blood cultures, will check 2-D echocardiogram. Consult infectious disease. 2. Right Thumb Infection: History limited as pt uncooperative w/ exam, not answering questions, apparently sustained injury 2wks ago w/ piece of rebar, now w/ progressive swelling and fever. Hand X-ray w/ soft tissue swelling, no foreign body noted, images reviewed by me. Continue w/ IV Abx as above, follow up cultures. Analgesics/antiemetics as needed. Consult Hand Sx for further evaluation/possible intervention. 12/05 patient is status post incision and drainage of complicated wound abscess. Drainage and washout of tendon sheath of thumb. Continue IV antibiotics to follow-up recommendations provided by Dr. Lebron. Hand elevation. Continue pain control with [place] and IV morphine. 3. Tobacco Abuse: NicoDerm prn if needed. 4. DVT Prophylaxis: SCD/Teds. 5. Social work for d/c planning as needed. Discharge Planning Continue to monitor in the medical floor. ID consult placed. Patient with positive blood cultures. Needs and surgical clearance. Joshua Lizarraga MD Dec 05, 2017 17:47
[2017-12-06] VITALS: BP 130/82; PULSE 85; RESP 20; TEMP 96.9; O2SAT 96
[2017-12-06] MEDS: VANCOMYCIN INJ 1,750 MG in SODIUM CHLORID 0.9% 500 ML INJ 500 ML IV SCH ×2 (00:49→15:33)
[2017-12-06] MEDS: MORPHINE SULFATE 2 MG/ML INJ IV PUSH PRN ×3 (00:49→20:36)
[2017-12-06] MEDS: CEFEPIME INJ 1,000 MG in SODIUM CHLORIDE 0.9% INJ 100 ML IV SCH ×2 (00:50→12:39)
[2017-12-06 04:00] VITALS: BP 130/86; PULSE 85; RESP 20; TEMP 96.3; O2SAT 97
[2017-12-06] MEDS: SODIUM CHLOR 0.9% 1000 ML INJ 1,000 ML IV SCH ×2 (06:20→15:11)
[2017-12-06] MEDS: BACITRACIN TOP OINT 15 GM TUBE TOPICAL SCH ×3 (06:22→20:39)
[2017-12-06 08:00] VITALS: BP 127/68; PULSE 78; RESP 18; TEMP 98.8; O2SAT 96
[2017-12-06] MEDS: SODIUM CHLORIDE 0.9% FLUSH 10 ML FLUSH IV FLUSH SCH ×2 (09:00→20:40)
--- NOTE | 2017-12-06 09:16 | HHI.PR ---
Subjective Remarks Patient feels pain is much less. Patient has been doing warm soapy water soaks. Objective Vital Signs Date Time Temp Pulse Resp B/P (MAP) Pulse Ox O2 Delivery O2 Flow Rate FiO2 12/06/17 04:00 96.3 85 20 130/86 (101) 97 12/06/17 00:00 96.9 85 20 130/82 (98) 96 12/05/17 20:00 97.7 106 20 125/67 (86) 95 12/05/17 18:10 99 21 12/05/17 16:00 98.6 84 20 138/74 (95) 99 12/05/17 13:35 98 12/05/17 12:00 98.9 84 20 136/74 (94) 98 I/O 12/05/17 12/05/17 12/05/17 12/06/17 12/06/17 12/06/17 07:00 15:00 23:00 07:00 15:00 23:00 Intake Total 820 ml 100 ml 4500.5 ml 100 ml Output Total 2000 ml 2350 ml 1525 ml Balance -1180 ml 100 ml 2150.5 ml -1425 ml Intake Oral 720 ml 2400 ml IV Total 100 ml 100 ml 2100.5 ml 100 ml Output Urine Total 2000 ml 2350 ml 1525 ml # Bowel Movements 0 No acute distress Patient appears much more energetic and responsive Dressing removed Erythema over epidermal lysis area is improved No additional purulence expressed Patient endorses sensation to both sides of his thumb tip Sutures and placed Range of motion slightly improved Thumb still very edematous Nail bed without capillary refill which is unchanged from preop Result Diagram: 12/05/17 0612/05/17 06 Assessment and Plan Problem List: (1) Tenosynovitis of thumb ICD Codes: M65.9 - Synovitis and tenosynovitis, unspecified Status: Acute (2) Infection of thumb ICD Codes: L08.9 - Local infection of the skin and subcutaneous tissue, unspecified (3) Sepsis ICD Codes: A41.9 - Sepsis, unspecified organism Assessment and Plan 42-year-old male with severe right thumb infection Slowly improving Continue antibiotics Dressing: warm soapy water soaks for 15 minutes 3 times a day by nursing, followed by application of copious bacitracin, then Xeroform, then dry gauze Keep hand elevated Mani Martinez MD Dec 06, 2017 09:16
[2017-12-06] MEDS: DOCUSATE SODIUM 50 MG/SENNA 8.6 MG TAB PO SCH ×2 (09:41→20:36)
--- NOTE | 2017-12-06 11:19 | HHI.PR ---
Subjective Remarks pain controlled. denies cp/sob. no further fevers since 12/05 Objective Vitals Vital Signs Date Time Temp Pulse Resp B/P (MAP) Pulse Ox O2 Delivery O2 Flow Rate FiO2 12/06/17 08:00 98.8 78 18 127/68 (87) 96 12/06/17 04:00 96.3 85 20 130/86 (101) 97 12/06/17 00:00 96.9 85 20 130/82 (98) 96 12/05/17 20:00 97.7 106 20 125/67 (86) 95 12/05/17 18:10 99 21 12/05/17 16:00 98.6 84 20 138/74 (95) 99 12/05/17 13:35 98 12/05/17 12:00 98.9 84 20 136/74 (94) 98 I/O 12/05/17 12/05/17 12/05/17 12/06/17 12/06/17 12/06/17 07:00 15:00 23:00 07:00 15:00 23:00 Intake Total 820 ml 100 ml 4500.5 ml 100 ml Output Total 2000 ml 2350 ml 1525 ml Balance -1180 ml 100 ml 2150.5 ml -1425 ml Intake Oral 720 ml 2400 ml IV Total 100 ml 100 ml 2100.5 ml 100 ml Output Urine Total 2000 ml 2350 ml 1525 ml # Bowel Movements 0 Result Diagram: 12/05/17 0626 12/05/17 0626 Imaging Last Impressions Finger X-Ray 12/04/17 0000 Signed Impressions: Service Date/Time: Monday, December 04, 2017 01:34 - CONCLUSION: Soft tissue swelling. Wilder Bailey MD Objective Remarks GENERAL: Middle-aged black male in no acute distress, pretending to sleep. Uncooperative w/ exam, will not answer questions. HEENT: PERRLA, EOMI. No scleral icterus or conjunctival pallor. No lid lag or facial droop. CARDIOVASCULAR: Regular rate and rhythm. No obvious murmurs to auscultation. No chest tenderness to palpation. RESPIRATORY: No obvious rhonchi or wheezing. Clear to auscultation. Breath sounds equal bilaterally. GASTROINTESTINAL: Abdomen soft, non-tender, nondistended. BS normal. MUSCULOSKELETAL: Extremities without clubbing, cyanosis, or edema. No obvious deformities. Right thumb w/ swelling, +laceration at base of thumb. NEUROLOGICAL: Eyes closed, uncooperative. No focal neurologic deficits. Moving both upper and lower extremities spontaneously. Procedures Incision and drainage of complicated thumb abscess (felon) Drainage and washout of tendon sheath of thumb Medications and IVs Current Medications Medications (Trade) Dose Ordered Sig/Teresa Route Start Time Stop Time Status Last Admin Pharmacy Profile Note 0 ml @ 0 mls/hr UNSCH OTHER 12/04/17 03:15 Sodium Chloride 1,000 ml @ 100 mls/hr Q10H IV 12/04/17 03:11 12/06/17 06:20 (NS Flush) 2 ml UNSCH PRN IV FLUSH 12/04/17 03:15 (NS Flush) 2 ml BID IV FLUSH 12/04/17 09:00 12/05/17 20:46 (Zofran Inj) 4 mg Q6H PRN IVP 12/04/17 03:15 (Tylenol) 650 mg Q6H PRN PO 12/04/17 03:15 12/05/17 06:27 ([place] 5-325 Mg) 1 tab Q4H PRN PO 12/04/17 03:15 (Morphine Inj) 2 mg Q3H PRN IV PUSH 12/04/17 03:15 12/06/17 06:20 (Jessie-Colace) 1 tab BID PO 12/04/17 09:00 12/06/17 09:41 (Milk Of Magnesia Liq) 30 ml Q12H PRN PO 12/04/17 03:15 (Senokot) 17.2 mg Q12H PRN PO 12/04/17 03:15 (Dulcolax Supp) 10 mg DAILY PRN RECTAL 12/04/17 03:15 (Lactulose Liq) 30 ml DAILY PRN PO 12/04/17 03:15 Vancomycin HCl 1750 mg/Sodium Chloride 517.5 ml @ 257.5 mls/ hr Q12H IV 12/04/17 14:00 12/06/17 15:33 (Baciguent Oint) 1 applic Q8HR TOPICAL 12/05/17 14:00 12/06/17 12:39 Miscellaneous Information SPECIFIC LAB TO BE DRAWN:VANCOMYCIN TROUGH DATE TO... ONCE ONCE .XX 12/08/17 01:45 2 01:46 A/P Problem List: (1) Sepsis ICD Code: A41.9 - Sepsis, unspecified organism (2) Infection of thumb ICD Code: L08.9 - Local infection of the skin and subcutaneous tissue, unspecified (3) Tobacco abuse ICD Code: Z72.0 - Tobacco use Assessment and Plan 1. Sepsis: Temp 102 at home, HR 111, Source-Right Thumb Infection. S/p Blood Cultures, Vanc/Zosyn in ER, continue w/ IV Abx, follow up cultures. 12/05 sepsis clinically improving. Patient without any further fevers and tachycardia resolved. Continue IV vancomycin and IV Zosyn. Blood cultures are growing MRSA as well as wound cultures. We'll place on contact precautions. Repeat blood cultures, will check 2-D echocardiogram. Consult infectious disease. 12/06 appreciate ID consultation. IV cefepime discontinued and vancomycin IV continued. Sepsis clinically resolving. 2. Right Thumb Infection: History limited as pt uncooperative w/ exam, not answering questions, apparently sustained injury 2wks ago w/ piece of rebar, now w/ progressive swelling and fever. Hand X-ray w/ soft tissue swelling, no foreign body noted, images reviewed by me. Continue w/ IV Abx as above, follow up cultures. Analgesics/antiemetics as needed. Consult Hand Sx for further evaluation/possible intervention. patient is status post incision and drainage of complicated wound abscess. Drainage and washout of tendon sheath of thumb. Continue IV antibiotics to follow-up recommendations provided by Dr. Lebron. Hand elevation. Continue pain control with [place] and IV morphine. 3. Tobacco Abuse: NicoDerm prn if needed. 4. DVT Prophylaxis: SCD/Teds. 5. Social work for d/c planning as needed. Discharge Planning Continue to monitor in the medical floor. Needs and surgical clearance. Needs ID clearance. Joshua Lizarraga MD Dec 06, 2017 11:19
[2017-12-06 12:00] VITALS: BP 125/70; PULSE 75; RESP 18; TEMP 98; O2SAT 97
--- NOTE | 2017-12-06 15:14 | PD.CONS ---
History of Present Illness Service Infectious disease Consult Requested By Dr Hooper Reason for Consult Evaluate patient with right thumb abscess, wound and blood culture with MRSA Primary Care Physician No Primary Care Physician Diagnoses: History of Present Illness Patient is a 42-year-old male, presented to the hospital complaining of worsening right thumb pain and swelling. He has had the problem for about 2 weeks, and he actually initially went to the emergency room on November 29. He injured his right thumb on her rebar. Patient however signed out AGAINST MEDICAL ADVICE before he was fully evaluated. His symptoms worsened, and he patient into the hospital on December 04 for worsening right thumb pain and swelling. There's been some fevers at home. He denies any other complaint is far as respiratory, GI or any urinary complaints. Hand surgery saw the patient , and the patient was taken emergently to surgery, and had incision and drainage of the abscess in the right thumb, and did some debridement of the tendon sheath. All the cultures from surgery has MRSA, and 2 blood cultures done in the emergency room also with MRSA. Overall his pain has improved. The last time he had a high fever was yesterday at 4:00 in the morning. Repeat blood cultures were done and those are negative so far. Infectious disease consultation has been requested to evaluate the patient. Review of Systems Constitutional: COMPLAINS OF: Fever, DENIES: Night Sweats Eyes: DENIES: Eye pain Ears, nose, mouth, throat: DENIES: Nasal discharge, Oral lesions, Throat pain, Ear Pain, Running Nose Respiratory: DENIES: Cough, Shortness of breath Cardiovascular: DENIES: Chest pain, Palpitations, Syncope, Dyspnea on Exertion , Lower Extremity Edema Gastrointestinal: DENIES: Abdominal pain, Constipation, Diarrhea, Nausea, Vomiting, Difficulty Swallowing Genitourinary: DENIES: Urgency, Hematuria, Dysuria, Penile Discharge Musculoskeletal: COMPLAINS OF: Joint pain, Joint Swelling, DENIES: Muscle aches , Neck pain Integumentary: DENIES: Pruritus, Rash Hematologic/lymphatic: DENIES: Lymphadenopathy Neurologic: DENIES: Localized weakness Psychiatric: DENIES: Hallucinations Past Family Social History Allergies: Coded Allergies: No Known Drug Allergies (Verified Allergy, Unknown, 12/04/17) Past Medical History None Past Surgical History None Active Ordered Medications Current Medications Medications (Trade) Dose Ordered Sig/Teresa Route Start Time Stop Time Status Last Admin Pharmacy Profile Note 0 ml @ 0 mls/hr UNSCH OTHER 12/04/17 03:15 Cefepime HCl 1000 mg/Sodium Chloride 100 ml @ 200 mls/hr Q12H IV 12/04/17 12:00 12/06/17 12:39 Sodium Chloride 1,000 ml @ 100 mls/hr Q10H IV 12/04/17 03:11 12/06/17 06:20 (NS Flush) 2 ml UNSCH PRN IV FLUSH 12/04/17 03:15 (NS Flush) 2 ml BID IV FLUSH 12/04/17 09:00 12/05/17 20:46 (Zofran Inj) 4 mg Q6H PRN IVP 12/04/17 03:15 (Tylenol) 650 mg Q6H PRN PO 12/04/17 03:15 12/05/17 06:27 ([place] 5-325 Mg) 1 tab Q4H PRN PO 12/04/17 03:15 (Morphine Inj) 2 mg Q3H PRN IV PUSH 12/04/17 03:15 12/06/17 06:20 (Jessie-Colace) 1 tab BID PO 12/04/17 09:00 12/06/17 09:41 (Milk Of Magnesia Liq) 30 ml Q12H PRN PO 12/04/17 03:15 (Senokot) 17.2 mg Q12H PRN PO 12/04/17 03:15 (Dulcolax Supp) 10 mg DAILY PRN RECTAL 12/04/17 03:15 (Lactulose Liq) 30 ml DAILY PRN PO 12/04/17 03:15 Vancomycin HCl 1750 mg/Sodium Chloride 517.5 ml @ 257.5 mls/ hr Q12H IV 12/04/17 14:00 12/06/17 00:49 (Baciguent Oint) 1 applic Q8HR TOPICAL 12/05/17 14:00 12/06/17 12:39 Miscellaneous Information SPECIFIC LAB TO BE DRAWN:VANCOMYCIN TROUGH DATE TO... ONCE ONCE .XX 12/08/17 01:45 12/08/17 01:46 Family History Noncontributory Social History Positive for alcohol, tobacco and Marijuana. Denies IV drug use Physical Exam Vital Signs Vital Signs Date Time Temp Pulse Resp B/P (MAP) Pulse Ox O2 Delivery O2 Flow Rate FiO2 12/06/17 12:00 98.0 75 18 125/70 (88) 97 12/06/17 08:00 98.8 78 18 127/68 (87) 96 12/06/17 04:00 96.3 85 20 130/86 (101) 97 12/06/17 00:00 96.9 85 20 130/82 (98) 96 12/05/17 20:00 97.7 106 20 125/67 (86) 95 12/05/17 18:10 99 21 12/05/17 16:00 98.6 84 20 138/74 (95) 99 Physical Exam GENERAL: Patient is a well-nourished, well-developed male, awake and alert, not in respiratory distress. SKIN: Cool and dry. No generalized rash, no ecchymoses and no evidence of embolic lesions. HEAD: Atraumatic. Normocephalic. No temporal wasting, or tenderness. EYES: [place] conjunctiva. No petechia or hemorrhage. Pupils equal, round and reactive to light. Extraocular movements full and intact. No scleral icterus. No injection or drainage. EARS, NOSE AND THROAT: Nose without bleeding or purulent nasal discharge. No sinus tenderness. Mucous membranes pink and moist. No oral lesions noted. No exudate. No oral thrush. NECK: Trachea midline. Supple and not tender, no meningeal signs CARDIOVASCULAR: Regular rate and rhythm. No murmurs, rubs or gallops heard RESPIRATORY: Clear to auscultation. Breath sounds equal bilaterally. No rales , wheezing or rhonchi ABDOMEN: Soft, non-tender, nondistended. Bowel sounds present and normoactive. No guarding. No rebound. No organomegaly. EXTREMITIES: Has dry intact dressing to his R thumb. No tenderness on his palm, good movements of all the 4 fingers R hand, good ROM R wrist. No lymphangitis seem in RUE. No clubbing, cyanosis, or edema. No joint effusion , has good ROM. No calf tenderness. Well perfused and warm. NEUROLOGICAL: Awake and alert. Cranial nerves grossly intact. Motor grossly within normal limits. PSYCHIATRIC: Normal affect, calm and cooperative. LINE: No evidence of infection Laboratory Date/Time Source Procedure Growth Status 12/05/17 21:40 Blood Peripheral Aerobic Blood Culture - Preliminary NO GROWTH IN 1 DAY Resulted 12/05/17 21:40 Blood Peripheral Anaerobic Blood Culture - Preliminary NO GROWTH IN 1 DAY Resulted 12/04/17 17:14 Wound Finger Fungal Smear - Final NO FUNGAL ELEMENTS SEEN. Resulted 12/04/17 17:14 Wound Finger Fungal Culture Pending Resulted Result Diagram: 12/05/17 0626 12/05/17 0626 Imaging RADIOLOGY STUDIES/FILMS REVIEWED Finger X-Ray 12/04/17 0000 Signed Impressions: Service Date/Time: Monday, December 04, 2017 01:34 - CONCLUSION: Soft tissue swelling. Wilder Bailey MD Assessment and Plan Assessment and Plan IMPRESSION MRSA bacteremia due to R thumb infection R thumb abscess, synovitis S/P OR Denies IVDU RECOMMENDATION Echo Continue IV Vanco Stop Cefepime Will need course of IV Abx for the (+) BC I will look at options for outpatient Rx Follow C/S I will follow along with you Thank you for this consultation Vania Ludwig MD Dec 06, 2017 15:14
[2017-12-06 16:00] VITALS: BP 129/72; PULSE 73; RESP 18; TEMP 97.8; O2SAT 97
[2017-12-06 20:00] VITALS: BP 138/82; PULSE 90; RESP 20; TEMP 98.4; O2SAT 96
[2017-12-07 00:04] VITALS: BP 141/80; PULSE 75; RESP 18; TEMP 97.4; O2SAT 96
[2017-12-07] MEDS: VANCOMYCIN INJ 1,750 MG in SODIUM CHLORID 0.9% 500 ML INJ 500 ML IV SCH (00:42)
[2017-12-07] MEDS: SODIUM CHLOR 0.9% 1000 ML INJ 1,000 ML IV SCH (00:43)
[2017-12-07] MEDS: BACITRACIN TOP OINT 15 GM TUBE TOPICAL SCH (05:44)
[2017-12-07 08:00] VITALS: BP 107/72; PULSE 68; RESP 17; TEMP 97.1; O2SAT 97
[2017-12-07] MEDS: DOCUSATE SODIUM 50 MG/SENNA 8.6 MG TAB PO SCH (11:47)
[2017-12-07] MEDS: SODIUM CHLORIDE 0.9% FLUSH 10 ML FLUSH IV FLUSH SCH (11:48)
[2017-12-07 12:00] VITALS: BP 108/68; PULSE 71; RESP 17; TEMP 97.9; O2SAT 97
--- NOTE | 2017-12-07 13:22 | HHI.PR ---
Subjective Remarks pain controlled afebrile wants to go home Objective Vitals Vital Signs Date Time Temp Pulse Resp B/P (MAP) Pulse Ox O2 Delivery O2 Flow Rate FiO2 12/07/17 12:00 97.9 71 17 108/68 (81) 97 12/07/17 08:00 97.1 68 17 107/72 (84) 97 12/07/17 00:04 97.4 75 18 141/80 (100) 96 12/06/17 20:00 98.4 90 20 138/82 (100) 96 12/06/17 16:00 97.8 73 18 129/72 (91) 97 I/O 12/06/17 12/06/17 12/06/17 12/07/17 12/07/17 12/07/17 07:00 15:00 23:00 07:00 15:00 23:00 Intake Total 100 ml 517.5 ml 1797.5 ml 2597.5 ml Output Total 1525 ml 1550 ml 2200 ml Balance -1425 ml 517.5 ml 247.5 ml 397.5 ml Intake Oral 480 ml 780 ml IV Total 100 ml 517.5 ml 1317.5 ml 1817.5 ml Output Urine Total 1525 ml 1550 ml 2200 ml # Bowel Movements 0 0 Result Diagram: 12/05/17 0626 12/05/17 0626 Imaging Last Impressions Finger X-Ray 12/04/17 0000 Signed Impressions: Service Date/Time: Monday, December 04, 2017 01:34 - CONCLUSION: Soft tissue swelling. Wilder Bailey MD Objective Remarks GENERAL: Middle-aged black male in no acute distress, pretending to sleep. Uncooperative w/ exam, will not answer questions. HEENT: PERRLA, EOMI. No scleral icterus or conjunctival pallor. No lid lag or facial droop. CARDIOVASCULAR: Regular rate and rhythm. No obvious murmurs to auscultation. No chest tenderness to palpation. RESPIRATORY: No obvious rhonchi or wheezing. Clear to auscultation. Breath sounds equal bilaterally. GASTROINTESTINAL: Abdomen soft, non-tender, nondistended. BS normal. MUSCULOSKELETAL: Extremities without clubbing, cyanosis, or edema. No obvious deformities. Right thumb w/ swelling, +laceration at base of thumb. NEUROLOGICAL: Eyes closed, uncooperative. No focal neurologic deficits. Moving both upper and lower extremities spontaneously. Procedures Incision and drainage of complicated thumb abscess (felon) Drainage and washout of tendon sheath of thumb Medications and IVs Current Medications Medications (Trade) Dose Ordered Sig/Teresa Route Start Time Stop Time Status Last Admin Pharmacy Profile Note 0 ml @ 0 mls/hr UNSCH OTHER 12/04/17 03:15 Sodium Chloride 1,000 ml @ 100 mls/hr Q10H IV 12/04/17 03:11 12/07/17 00:43 (NS Flush) 2 ml UNSCH PRN IV FLUSH 12/04/17 03:15 (NS Flush) 2 ml BID IV FLUSH 12/04/17 09:00 12/07/17 11:48 (Zofran Inj) 4 mg Q6H PRN IVP 12/04/17 03:15 (Tylenol) 650 mg Q6H PRN PO 12/04/17 03:15 12/05/17 06:27 ([place] 5-325 Mg) 1 tab Q4H PRN PO 12/04/17 03:15 (Morphine Inj) 2 mg Q3H PRN IV PUSH 12/04/17 03:15 12/06/17 20:36 (Jessie-Colace) 1 tab BID PO 12/04/17 09:00 12/07/17 11:47 (Milk Of Magnesia Liq) 30 ml Q12H PRN PO 12/04/17 03:15 (Senokot) 17.2 mg Q12H PRN PO 12/04/17 03:15 (Dulcolax Supp) 10 mg DAILY PRN RECTAL 12/04/17 03:15 (Lactulose Liq) 30 ml DAILY PRN PO 12/04/17 03:15 Vancomycin HCl 1750 mg/Sodium Chloride 517.5 ml @ 257.5 mls/ hr Q12H IV 12/04/17 14:00 12/07/17 00:42 (Baciguent Oint) 1 applic Q8HR TOPICAL 12/05/17 14:00 12/07/17 05:44 Miscellaneous Information SPECIFIC LAB TO BE DRAWN:VANCOMYCIN TROUGH DATE TO... ONCE ONCE .XX 12/08/17 01:45 12/08/17 01:46 A/P Problem List: (1) Sepsis ICD Code: A41.9 - Sepsis, unspecified organism (2) Infection of thumb ICD Code: L08.9 - Local infection of the skin and subcutaneous tissue, unspecified (3) Tobacco abuse ICD Code: Z72.0 - Tobacco use Assessment and Plan 1. Sepsis: Temp 102 at home, HR 111, Source-Right Thumb Infection. S/p Blood Cultures, Vanc/Zosyn in ER, continue w/ IV Abx, follow up cultures. Patient was placed on IV vancomycin and IV Zosyn. Blood cultures grew MRSA as well as wound culture. ID consulted. ID discontinued IV cefepime and continue IV vancomycin. Discussed the case with Dr. Benites who is awaiting for the echocardiogram to be resulted. Echocardiogram was ordered on 12/05 however there is no report available at this time. I called the echocardiogram department to inquire about it. They said they will look into it. 2. Right Thumb Infection: Initially history limited from patient, apparently sustained injury 2wks ago w/ piece of rebar, now w/ progressive swelling and fever. Hand X-ray w/ soft tissue swelling, no foreign body noted. Patient treated with IV antibiotics as above and pain control with [place] and IV morphine. Surgery was consulted. The patient underwent incision and drainage of complicated wound abscess. Drainage and washout of tendon sheath of thumb. Continue IV antibiotics to follow-up recommendations provided by Dr. Lebron. Hand elevation. Continue pain control with [place] and IV morphine. 12/07 Awaiting hand surgery clearance. 3. Tobacco Abuse: NicoDerm prn if needed. 4. DVT Prophylaxis: SCD/Teds. 5. Social work for d/c planning as needed. Discharge Planning The patient will be able to discharge once cleared by hand surgery. Awaiting also an echocardiogram report for ID to give final recommendations on outpatient antibiotics. Joshua Lizarraga MD Dec 07, 2017 13:22
[2017-12-07 14:34] LABS: HEMATOCRIT 40.6 % (39.0-51.0); HEMOGLOBIN 13.7 GM/DL (13.0-17.0); MEAN CELL VOLUME 83.6 FL (80.0-100.0); MEAN CORPUSCULAR HEMOGLOBIN 28.2 PG (27.0-34.0); MEAN CORPUSCULAR HGB CONC 33.8 % (32.0-36.0); MEAN PLATELET VOLUME 6.9 FL (7.0-11.0); PLATELET COUNT 370 TH/MM3 (150-450); RED BLOOD COUNT 4.86 MIL/MM3 (4.50-5.90); RED CELL DISTRIBUTION WIDTH 13.7 % (11.6-17.2)
--- NOTE | 2017-12-07 14:34 | ECHRPT ---
Indication: SEPSIS, ENDOCARDITIS CONCLUSIONS Normal left ventricular size with upper normal wall thickness. The left ventricular systolic functio n is normal with an estimated ejection fraction in the range of 50-55%. Normal wall motion. Trace mitral valve regurgitation. BP: 127 / 68 HR: 78 Rhythm: MEASUREMENTS (Male / Female) Normal Values Technical Quality:Good 2D ECHO LV Diastolic Diameter PLAX 5.2 cm 4.2 - 5.9 / 3.9 - 5.3 cm LV Systolic Diameter PLAX 3.9 cm IVS Diastolic Thickness 1.4 cm 0.6 - 1.0 / 0.6 - 0.9 cm LVPW Diastolic Thickness 1.1 cm 0.6 - 1.0 / 0.6 - 0.9 cm LV Relative Wall Thickness 0.5 RV Internal Dim ED PLAX 2.1 cm M-MODE Aortic Root Diameter MM 4.2 cm AV Cusp Separation MM 3.0 cm DOPPLER Mitral E Point Velocity 52.3 cm/s Mitral A Point Velocity 46.4 cm/s Mitral E to A Ratio 1.1 TR Peak Velocity 159.0 cm/s TR Peak Gradient 10.1 mmHg FINDINGS LEFT VENTRICLE Normal left ventricular size with upper normal wall thickness. The left ventricular systolic functio n is normal with an estimated ejection fraction in the range of 50-55%. Normal wall motion. RIGHT VENTRICLE Normal right ventricular size and systolic function. LEFT ATRIUM The left atrial size is normal. RIGHT ATRIUM The right atrial size is normal. ATRIAL SEPTUM Normal atrial septal thickness without atrial level shunting by limited color doppler interrogation. AORTA The aortic root and proximal ascending aorta are normal in size on limited imaging. MITRAL VALVE Trace mitral valve regurgitation. AORTIC VALVE Trileaflet aortic valve. No aortic valve stenosis or regurgitation. TRICUSPID VALVE Structurally normal tricuspid valve. No tricuspid valve stenosis or regurgitation. PULMONARY VALVE Trivial pulmonary valve regurgitation. VESSELS The inferior vena cava is normal in size. PERICARDIUM No pericardial effusion. Jacobo Perkins MD (Electronically Signed) Final Date:07 December 2017 14:33
[2017-12-07 15:08] LABS: BICARBONATE 31.5 MEQ/L (21.0-32.0); CALCIUM 8.8 MG/DL (8.5-10.1); CREATININE 1.06 MG/DL (0.60-1.30)
[2017-12-07] MEDS: ACETAMINOPHEN 325 MG TAB PO PRN (15:17)
--- NOTE | 2017-12-07 15:50 | HHI.IDPN ---
Subjective Subjective Remarks ID Xcover for . is a 42-year-old male, presented to the hospital complaining of worsening right thumb pain and swelling. He has had the problem for about 2 weeks, and he actually initially went to the emergency room on November 29. He injured his right thumb on her rebar. Patient however signed out AGAINST MEDICAL ADVICE before he was fully evaluated. His symptoms worsened, and he patient into the hospital on December 04 for worsening right thumb pain and swelling. There's been some fevers at home. He denies any other complaint is far as respiratory, GI or any urinary complaints. Hand surgery saw the patient , and the patient was taken emergently to surgery, and had incision and drainage of the abscess in the right thumb, and did some debridement of the tendon sheath. All the cultures from surgery has MRSA, and 2 blood cultures done in the emergency room also with MRSA. Overall his pain has improved. The last time he had a high fever was yesterday at 4:00 in the morning. Repeat blood cultures were done and those are negative so far. Infectious disease consultation has been requested to evaluate the patient. Overnight events reviewed. No fevers No rash No diarrhea Antibiotics Vanco IV Lines Line sites with no e.o infection Past Medical History Past Medical History None Past Surgical History None Allergies: Coded Allergies: No Known Drug Allergies (Verified Allergy, Unknown, 12/04/17) Objective . Vital Signs Date Time Temp Pulse Resp B/P (MAP) Pulse Ox O2 Delivery O2 Flow Rate FiO2 12/07/17 12:00 97.9 71 17 108/68 (81) 97 12/07/17 08:00 97.1 68 17 107/72 (84) 97 12/07/17 00:04 97.4 75 18 141/80 (100) 96 12/06/17 20:00 98.4 90 20 138/82 (100) 96 12/06/17 16:00 97.8 73 18 129/72 (91) 97 . Laboratory Tests Test 12/07/17 13:20 White Blood Count 4.0 TH/MM3 Red Blood Count 4.86 MIL/MM3 Hemoglobin 13.7 GM/DL Hematocrit 40.6 % Mean Corpuscular Volume 83.6 FL Mean Corpuscular Hemoglobin 28.2 PG Mean Corpuscular Hemoglobin Concent 33.8 % Red Cell Distribution Width 13.7 % Platelet Count 370 TH/MM3 Mean Platelet Volume 6.9 FL Laboratory Tests Test 12/07/17 13:20 Blood Urea Nitrogen 9 MG/DL Creatinine 1.06 MG/DL Random Glucose 80 MG/DL Calcium Level 8.8 MG/DL Sodium Level 139 MEQ/L Potassium Level 5.5 MEQ/L Chloride Level 103 MEQ/L Carbon Dioxide Level 31.5 MEQ/L Anion Gap 5 MEQ/L Estimat Glomerular Filtration Rate 93 ML/MIN Microbiology Date/Time Source Procedure Growth Status 12/05/17 21:40 Blood Peripheral Aerobic Blood Culture - Preliminary NO GROWTH IN 2 DAYS Resulted 12/05/17 21:40 Blood Peripheral Anaerobic Blood Culture - Preliminary NO GROWTH IN 2 DAYS Resulted 12/05/17 21:30 Blood Peripheral Aerobic Blood Culture - Preliminary NO GROWTH IN 2 DAYS Resulted 12/05/17 21:30 Blood Peripheral Anaerobic Blood Culture - Preliminary NO GROWTH IN 2 DAYS Resulted 12/04/17 17:14 Wound Finger Fungal Smear - Final NO FUNGAL ELEMENTS SEEN. Resulted 12/04/17 17:14 Wound Finger Fungal Culture Pending Resulted 12/04/17 17:14 Wound Finger Acid Fast Stain - Final NO ACID FAST BACILLI SEEN Resulted 12/04/17 17:14 Wound Finger Mycobacterial Culture Pending Resulted 12/04/17 17:14 Wound Finger Gram Stain - Final Complete 12/04/17 17:14 Wound Culture - Final S. Aureus Mrsa Complete 12/04/17 17:14 Wound Finger Fungal Smear - Final NO FUNGAL ELEMENTS SEEN. Resulted 12/04/17 17:14 Wound Finger Fungal Culture Pending Resulted 12/04/17 17:14 Wound Finger Acid Fast Stain - Final NO ACID FAST BACILLI SEEN Resulted 12/04/17 17:14 Wound Finger Mycobacterial Culture Pending Resulted 12/04/17 17:14 Wound Finger Gram Stain - Final Complete 12/04/17 17:14 Wound Culture - Final S. Aureus Mrsa Complete 12/04/17 17:14 Wound Finger Fungal Smear - Final NO FUNGAL ELEMENTS SEEN. Resulted 12/04/17 17:14 Wound Finger Fungal Culture Pending Resulted 12/04/17 17:14 Wound Finger Acid Fast Stain - Final NO ACID FAST BACILLI SEEN Resulted 12/04/17 17:14 Wound Finger Mycobacterial Culture Pending Resulted 12/04/17 17:14 Wound Finger Gram Stain - Final Complete 12/04/17 17:14 Wound Culture - Final S. Aureus Mrsa Complete Imaging Last Impressions Finger X-Ray 1/28/18 0000 Signed Impressions: Service Date/Time: Monday, December 04, 2017 01:34 - CONCLUSION: Soft tissue swelling. Wilder Bailey MD Physical Exam GENERAL: Patient is a well-nourished, well-developed male, awake and alert, not in respiratory distress. SKIN: Cool and dry. No generalized rash, no ecchymoses and no evidence of embolic lesions. HEAD: Atraumatic. Normocephalic. No temporal wasting, or tenderness. EYES: [place] conjunctiva. No petechia or hemorrhage. Pupils equal, round and reactive to light. Extraocular movements full and intact. No scleral icterus. No injection or drainage. EARS, NOSE AND THROAT: Nose without bleeding or purulent nasal discharge. No sinus tenderness. Mucous membranes pink and moist. No oral lesions noted. No exudate. No oral thrush. NECK: Trachea midline. Supple and not tender, no meningeal signs CARDIOVASCULAR: Regular rate and rhythm. No murmurs, rubs or gallops heard RESPIRATORY: Clear to auscultation. Breath sounds equal bilaterally. No rales , wheezing or rhonchi ABDOMEN: Soft, non-tender, nondistended. Bowel sounds present and normoactive. No guarding. No rebound. No organomegaly. EXTREMITIES: Right thumb significantly swollen, unhealthy granulation tissue. Thumb appears to be twice the size of other digits. NEUROLOGICAL: Awake and alert. Cranial nerves grossly intact. Motor grossly within normal limits. PSYCHIATRIC: Normal affect, calm and cooperative. LINE: No evidence of infection Assessment & Plan Remarks MRSA bacteremia due to R thumb infection R thumb abscess, synovitis S/P OR Denies IVDU RECOMMENDATION Echo negative. Continue IV Vanco (target 15-20) D/w he does not recommend discharge home. Needs IV antibiotics for 4 weeks at least if not 6 weeks. Patient was informed about risk of losing limb, risk of worsening infection/ sepsis, endocarditis, epidural or distant infections and above all . He could not be reasoned with and signed off AMA. D/w about my conversations with pt and . to resume care in am. Neelam Benites MD Dec 07, 2017 15:50
[2017-12-07] MEDS ORDERED: metroNIDAZOLE 500 MG INJ 100 ML IV SCH (16:00)
--- NOTE | 2017-12-07 16:04 | PD.AMA ---
Against Medical Advice Note Discharge Disposition: Against Medical Advice Pt Condition on Discharge: Stable AMA Statement Patient Gonzales Vences has decided to leave the hospital against medical advice. This patient has the capacity to refuse care and understands the risks of leaving, including permanent disability and/or , and has had an opportunity to ask questions about his condition. The patient has been informed that he may return for care at any time, and follow up has been arranged/ advised. Please see DC summary. Joshua Lizarraga MD Dec 07, 2017 16:04
--- NOTE | 2017-12-07 16:14 | HHI.DS ---
Discharge Summary Admission Date Dec 04, 2017 at 03:16 Discharge Date: Dec 07, 2017 Admitting Diagnosis RIGHT THUMB CELLULITIS (1) Sepsis ICD Code: A41.9 - Sepsis, unspecified organism Diagnosis: Principal (2) Infection of thumb ICD Code: L08.9 - Local infection of the skin and subcutaneous tissue, unspecified Diagnosis: Principal (3) Tobacco abuse ICD Code: Z72.0 - Tobacco use Diagnosis: Principal Procedures Incision and drainage of complicated thumb abscess (felon) Drainage and washout of tendon sheath of thumb Brief History - From Admission This is a 42-year-old male with no reported PMH presented to the ER with complaints of right thumb pain and swelling x2 wks. History significantly limited as pt will not cooperate w/ exam or speak during interview. 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 Pt's significant other previously at bedside assisting w/ some of the history, however not available at this time. Per reports, pt seen on 11/29/17 after he injured his right thumb on rebar and apparently put a rent and miscellaneous remittance clerk to it. Was seen in Triage at that time, however pt LEFT AMA. Returns now w/ ongoing complaints, in addition to report of fever at home of 102.0. On arrival, BP 161/89, HR 111, O2 sat 97% on RA, Afebrile. CBC essentially unremarkable. Chemistry essentially unremarkable. Lactic Acid normal. Finger X-ray was soft tissue swelling, no foreign body seen. S/p Vanc/ Zosyn in ER. CBC/BMP: 12/07/17 1320 12/07/17 1320 Significant Findings Laboratory Tests Test 12/05/17 06:26 12/05/17 14:45 12/07/17 13:20 Red Blood Count 4.21 MIL/MM3 (4.50-5.90) Hemoglobin 11.8 GM/DL (13.0-17.0) Hematocrit 34.7 % (39.0-51.0) Monocytes (%) (Auto) 8.6 % (0.0-8.0) Albumin 2.7 GM/DL (3.4-5.0) Calcium Level 8.4 MG/DL (8.5-10.1) Sodium Level 135 MEQ/L (136-145) Estimat Glomerular Filtration Rate 79 ML/MIN (>89) Vancomycin Level Trough 12.9 MCG/ML (5.0-10.0) Mean Platelet Volume 6.9 FL (7.0-11.0) Potassium Level 5.5 MEQ/L (3.5-5.1) Imaging Last Impressions Finger X-Ray 12/04/17 0000 Signed Impressions: Service Date/Time: Monday, December 04, 2017 01:34 - CONCLUSION: Soft tissue swelling. Wilder Bailey MD PE at Discharge GENERAL: Middle-aged black male in no acute distress, pretending to sleep. Uncooperative w/ exam, will not answer questions. HEENT: PERRLA, EOMI. No scleral icterus or conjunctival pallor. No lid lag or facial droop. CARDIOVASCULAR: Regular rate and rhythm. No obvious murmurs to auscultation. No chest tenderness to palpation. RESPIRATORY: No obvious rhonchi or wheezing. Clear to auscultation. Breath sounds equal bilaterally. GASTROINTESTINAL: Abdomen soft, non-tender, nondistended. BS normal. MUSCULOSKELETAL: Extremities without clubbing, cyanosis, or edema. No obvious deformities. Right thumb w/ swelling, +laceration at base of thumb. NEUROLOGICAL: Eyes closed, uncooperative. No focal neurologic deficits. Moving both upper and lower extremities spontaneously. Hospital Course Visit patient presented with sepsis the right lung infection including abscess and cellulitis. Patient was placed on IV perspective antibiotics with vancomycin and IV Zosyn. Blood cultures obtained which grew MRSA in all 4 bottles. ID consulted. To the echocardiogram was normal with normal ejection fraction and no evidence of vegetations. The patient underwent incision and drainage of complicated wound abscess. Drainage of the tendon sheath of the thumb. Pain control with control with Harshaw and IV morphine. The patient decided to leave AGAINST MEDICAL ADVICE even though infectious disease doctor, myself and Dr. Moraes told him that if he chooses to leave them he will likely get sicker and possibly end up losing the limb. The patient is able to understand that he cessation includes possible limb amputation in the future to including . The patient states he understands but he wishes to go home. I discussed the case with Dr. Benites and she does not feel that oral Levaquin will treat this complicated infection. She recommended to keep the patient for continued IV antibiotic therapy. On exam the patient's right thumb is very swollen, macerated. The patient was advised to return to the ER should he have fever or worsening pain or swelling. Pt Condition on Discharge: Stable Discharge Disposition: Discharge Home (Against Medical Advise) Discharge Time: <= 30 minutes Discharge Instructions Medication Profile: No Active Prescriptions or Reported Meds Joshua Lizarraga MD Dec 07, 2017 16:14
[2017-12-08] MEDS ORDERED: PHARMACY ORDERED LAB ONE (01:45)
== END 2017-12-07 16:05 | disposition left against medical advice (07) | DRG 854 ==
LOC: NEPE 00:18 → NEDH 03:16 → N07A 04:05
PROVIDERS: ADMIT Hospitalist; ATTEND Hospitalist
PROC: 0L970ZZ Drainage of Right Hand Tendon, Open Approach (ICD-10-PCS; principal; 2017-12-05)
PROC: 0HDFXZZ Extraction of Right Hand Skin, External Approach (ICD-10-PCS; 2017-12-05)
DX: A41.02 Sepsis due to Methicillin resistant Staphylococcus aureus (principal); L02.511 Cutaneous abscess of right hand; L03.011 Cellulitis of right finger; B95.62 Methicillin resistant Staphylococcus aureus infection as the cause of diseases classified elsewhere; M65.141 Other infective (teno)synovitis, right hand; F17.210 Nicotine dependence, cigarettes, uncomplicated
CPT/HCPCS: 73140; 80048; 80053; 80202; 81001; 83605; 85025; 85027; 86403; 87015; 87040; 87070; 87102; 87116; 87147; 87186; 87205; 87206; 93306; 96365; 96367; 96375; J0131; J0330; J0690; J0692; J1580; J2270; J2370; J2405; J2543; J3010; J3370; J7030; J7040; J7120